=== PATIENT | male | born 1985 | race Caucasian/White ===

== ENCOUNTER 2025-02-11 13:38 | Outpatient (CLI) | payer OTHER, SELFPAY ==
[2025-02-11 13:47] VITALS: PULSE 65; RESP 18; O2SAT 97
== END 2025-02-11 13:39 | disposition home or self-care (01) ==
LOC: RT 13:40
PROVIDERS: Visit Provider Chiropractor
DX: J44.9 Chronic obstructive pulmonary disease, unspecified (principal)
CPT/HCPCS: 94060